=== PATIENT | male | born 1965 | race Caucasian/White ===

== ENCOUNTER 2024-05-01 08:10 | Outpatient (CLI) | payer OTHER, SELFPAY ==
--- NOTE | 2024-05-01 08:24 | XR_ITS ---
FINAL REPORT CLINICAL HISTORY: BACK PAIN COMPARISON: None FINDINGS: 3 views of the lumbar spine were obtained. There is no evidence of fracture. There is no malalignment. The vertebrae are normal in height. There is mild diffuse degenerative disc disease and facet arthropathy, most pronounced in the lower lumbar spine. No paraspinous soft tissue abnormalities identified. IMPRESSION: Degenerative changes as above. Reviewed, Interpreted and Dictated by Nilo Mondragon MD Transcribed by Juany Dominguez Authenticated and [facility]
== END 2024-05-01 23:59 | disposition home or self-care (01) ==
LOC: RAD 08:15
PROVIDERS: Visit Provider Chiropractor
DX: M54.50 Low back pain, unspecified (principal)
CPT/HCPCS: 72100